=== PATIENT | male | born 2000 | race Two or more races ===

== ENCOUNTER 2024-09-16 01:49 | Emergency (ER) | payer MEDICAID, OTHER ==
[~2024-09-16] VITALS: Ht 167.6 cm; Wt 73.0 kg
[2024-09-16 01:56] VITALS: BP 170/56; PULSE 156; RESP 22; O2SAT 99
--- NOTE | 2024-09-16 02:12 | ED.PDOC ---
History of Present Illness HPI Comments 27 y/o M is BIBA for c/o abnormal behavior and mental health crisis, today. Per EMS report, [employer] employees called after patient was endorsed on entering the facility's restroom and coming out moments later "tweaking" and claiming on having "suicidal ideations," this morning. Patient was noted by EMS to have been uncooperative and noncommunicative on scene in addition to being found hypertensive and tachycardic. En route, patient was placed in restraints. Upon arrival to ED, patient remained uncooperative and refused to communicate with ED staff. Further history cannot be obtained, due to patient being unwilling to cooperate or communicate with staff along with absence of any family/customer training specialist historians. Chief Complaint: Mental Health Time Seen by MD: 01:50 Reviewed Notes: Nurses Notes, Drag Car Racer Notes, Medications, Allergies Allergies: Coded Allergies: UNOBTAINABLE (Unverified , 09/16/24) Information Source: Emergency Med Personnel Mode of Arrival: EMS Severity: Moderate Timing: Hours Duration: Since onset Prehospital treatment: 12 Lead EKG, Information Security Architect, Restraints Past Medical History PAST MEDICAL HISTORY: Unknown, Unobtainable Surgical History: Unknown, Unobtainable Family History Family History: Unknown, Unobtainable Social History Smoker: Unknown, Unobtainable Alcohol: Unknown, Unobtainable Drugs: Unknown, Unobtainable Lives In: Unknown, Unobtainable Psychiatric: reports: others (abnormal behavior and mental health crisis) All Other Systems: Reviewed and Negative (negative unless otherwise stated above or in HPI) Physical Exam General Appearance: Normal, Other (patient is uncooperative and nonverbal) HEENT: NOT DONE (patient is uncooperative to perform exam) Neck: NOT DONE (patient is uncooperative to perform exam) Respiratory: NOT DONE (patient is uncooperative to perform exam) Cardiovascular: NOT DONE (patient is uncooperative to perform exam) Breast Exam: Deferred Gastrointestinal: NOT DONE (patient is uncooperative to perform exam) Genitalia: Deferred Pelvic: Deferred Rectal: Deferred Extremities: NOT DONE (patient is uncooperative to perform exam) Musculoskeletal : Apperance: Normal Neurologic: NOT DONE (patient is uncooperative to perform exam) Cerebellar Function: NOT DONE (patient is uncooperative to perform exam) Reflexes: NOT DONE (patient is uncooperative to perform exam) Skin: NOT DONE (patient is uncooperative to perform exam) Lymphatic: NOT DONE (patient is uncooperative to perform exam) Was a procedure done? Was a procedure done?: No Differential Dx Considerations may include: suicidal ideations, schizophrenic disorder, substance abuse, intoxication, encephalopathy X-Ray, Labs, Meds, VS Vital Signs Date Time Temp Pulse Resp B/P (MAP) Pulse Ox O2 Delivery O2 Flow Rate FiO2 09/16/24 01:56 98.7 156 22 170/56 (94) 99 Lab Test 09/16/24 03:53 Range/Units White Blood Count 10.8 4.4-10.8 10^3/uL Red Blood Count 5.05 4.5-5.90 10^6/uL Hemoglobin 13.9 13.5-17.5 g/dL Hematocrit 41.8 41.0-53.0 % Mean Corpuscular Volume 82.8 80.0-100.0 fL Mean Corpuscular Hemoglobin 27.5 L 28.0-32.0 pg Mean Corpuscular Hemoglobin Concent 33.2 32.0-36.0 g/dL Red Cell Distribution Width 13.6 11.8-14.3 % Platelet Count 159 140-450 10^3/uL Mean Platelet Volume 10.1 6.9-10.8 fL Neutrophils (%) (Auto) 87.0 H 37.0-80.0 % Lymphocytes (%) (Auto) 7.2 L 10.0-50.0 % Monocytes (%) (Auto) 5.4 0.0-12.0 % Eosinophils (%) (Auto) 0.0 0.0-7.0 % Basophils (%) (Auto) 0.4 0.0-2.0 % Neutrophils # (Auto) 9.4 H 1.6-8.6 10 ^3/uL Lymphocytes # (Auto) 0.8 0.4-5.4 10 ^3/uL Monocytes # (Auto) 0.6 0-1.3 10 ^3/uL Eosinophils # (Auto) 0 0-0.8 10 ^3/uL Basophils # (Auto) 0 0-0.2 10 ^3/uL Nucleated Red Blood Cells 0.0 % Sodium Level 137 136-145 mmol/L Potassium Level 3.5 3.5-5.1 mmol/L Chloride Level 104 98-107 mmol/L Carbon Dioxide Level 24 20-31 mmol/L Anion Gap 9 5-15 Blood Urea Nitrogen 13 9-23 mg/dL Creatinine 1.06 0.700-1.30 mg/dL Glomerular Filtration Rate Calc 102 >90 mL/min BUN/Creatinine Ratio 12.3 10.0-20.0 Serum Glucose 139 H 74-106 mg/dL Calcium Level 10.3 8.7-10.4 mg/dL Salicylates Level < 3.0 -30 mg/dL Acetaminophen Level < 2.0 L 10.0-20.0 UG/ML Plasma/Serum Blood Alcohol 3.3 <10 mg/dL Time of 1ST Reevaluation: 02:20 Reevaluation 1ST: Unchanged Patient Education/Counseling: Diagnosis, Treatment Family Education/Counseling: No Family Present Departure 1 Departure Time of Disposition: 06:01 (Patient with a reported statements of SI however patient appears intoxicated at this time. And is not interacting with us. We will get labs UA imaging and discuss with psych.) Impression: Primary Impression: Metabolic encephalopathy Additional Impressions: Polysubstance abuse Suicide ideation Disposition: 30 STILL A PATIENT Condition: Serious Critical Care Note Critical Care Time?: No Stability Stability form required: No Heart Score Heart Score: Heart Score Response (Comments) Value History N/A 0 EKG N/A 0 Age N/A 0 Risk Factors N/A 0 Troponin N/A 0 Total 0 I personally scribed for MICHELLE EDWARDS MD ([email or web address]) on 09/16/24 at 02:12. Electronically submitted by Anibal Andres ([email or web address]). MICHELLE EDWARDS MD Sep 16, 2024 02:12
[2024-09-16 04:06] LABS: Basophils # (auto) 0 10 ^3/uL (0-0.2); Basophils % (auto) 0.4 % (0.0-2.0); Eosinophils # (auto) 0 10 ^3/uL (0-0.8); Hematocrit 41.8 % (41.0-53.0); Hemoglobin 13.9 g/dL (13.5-17.5); Lymphocytes # (auto) 0.8 10 ^3/uL (0.4-5.4); Lymphocytes % (auto) 7.2 % (10.0-50.0); Mean Corpuscular Hemoglobin 27.5 pg (28.0-32.0); Mean Corpuscular Hgb Conc. 33.2 g/dL (32.0-36.0); Mean Corpuscular Volume 82.8 fL (80.0-100.0); Monocytes # (auto) 0.6 10 ^3/uL (0-1.3); Monocytes % (auto) 5.4 % (0.0-12.0); Neutrophils # (auto) 9.4 10 ^3/uL (1.6-8.6); Platelet Count (auto) 159 10^3/uL (140-450); Red Blood Cells 5.05 10^6/uL (4.5-5.90); Red Cell Distribution Width 13.6 % (11.8-14.3); White Blood Cell 10.8 10^3/uL (4.4-10.8)
[2024-09-16 04:17] LABS: Chloride 104 mmol/L (98-107); Potassium 3.5 mmol/L (3.5-5.1); Sodium 137 mmol/L (136-145)
[2024-09-16 04:18] LABS: Anion Gap 9 (5-15); Calcium 10.3 mg/dL (8.7-10.4); Carbon Dioxide 24 mmol/L (20-31)
[2024-09-16 04:23] LABS: BUN/Creatinine Ratio 12.3 (10.0-20.0); Blood Urea Nitrogen 13 mg/dL (9-23); Glucose 139 mg/dL (74-106)
[2024-09-16 04:24] LABS: Blood Alcohol 3.3 mg/dL (<10)
[2024-09-16 04:28] LABS: Acetaminophen < 2.0 UG/ML (10.0-20.0); Salicylate < 3.0 mg/dL (-30)
== END 2024-09-16 05:30 | disposition left against medical advice (07) ==
LOC: EDBD 01:49 → ER 01:49
DX: G93.41 Metabolic encephalopathy (principal); R45.851 Suicidal ideations
CPT/HCPCS: 36415; 80048; 80320; 80329; 85025